=== PATIENT | male | born 1955 | race Caucasian/White ===

== ENCOUNTER 2024-05-01 17:49 | Emergency (ER) | payer MEDICARE, OTHER ==
[~2024-05-01] VITALS: Ht 175.3 cm; Wt 70.9 kg
[2024-05-01] MEDS ORDERED: SODIUM CHLORIDE 0.9% 1,000 ML IV ONE (20:00)
[2024-05-01] MEDS ORDERED: ondansetron HCL 4 MG/2 ML VIAL IV ONE (20:00)
[2024-05-01] MEDS ORDERED: MORPHINE SULFATE 4 MG/ML VIAL IV ONE (20:00)
[2024-05-01 20:09] LABS: BASOPHILS 0.4 % (0-2); EOSINOPHILS 0.2 % (0-6); HEMATOCRIT 42.5 % (35.0-50.0); HEMOGLOBIN 14.8 g/dL (12.0-18.0); LYMPHOCYTES 4.3 % (24-44); MCHC 34.9 g/dl (30-36); MCV 83.2 fl (81-99); MONOCYTES 9.8 % (0-12); NEUTROPHILS 85.3 % (39-80); PLATELET COUNT 301 K/uL (140-440); RBC 5.11 M/ul (4.3-5.7); RDW 15.4 (10.5-15.0)
[2024-05-01] MEDS ORDERED: KETOROLAC TROMETHAMINE 30 MG/ML VIAL IV ONE (20:15)
[2024-05-01 20:25] LABS: ALBUMIN 3.3 g/dL (3.4-5.0); ALBUMIN/GLOBULIN RATIO 0.67 (1.1-2.4); ANION GAP 17.2 (7-21); BILIRUBIN, TOTAL 0.4 ng/dL (0.2-1.0); BUN/CREATININE RATIO 23.61 (6.0-28.6); CALCIUM 12.1 mg/dL (8.5-10.1); CREATININE, SERUM 1.44 mg/dL (0.70-1.30); POTASSIUM 4.2 mmol/L (3.5-5.1); PROTEIN, TOTAL 8.2 g/dL (6.4-8.2)
[2024-05-01 22:11] LABS: BILIRUBIN, URINE NEGATIVE (negative); BLOOD/HGB, URINE NEGATIVE (Negative); KETONE, URINE NEGATIVE (Negative); LEUK ESTERASE, URINE NEGATIVE (negative); NITRITE, URINE NEGATIVE (negative)
[2024-05-01] MEDS ORDERED: PERCOCET 5-3251 EACH PO (23:14)
[2024-05-01] MEDS ORDERED: FLOMAX0.4 MG PO (23:14)
[2024-05-01] MEDS ORDERED: ONDANSETRON ODT8 MG PO (23:14)
[2024-05-01] MEDS ORDERED: ONDANSETRON 4 MG HOME.PACK SL ONE (23:30)
[2024-05-01] MEDS ORDERED: OXYCODONE/ACETAMINOPHEN 1 TAB HOME.PACK PO ONE (23:30)
[2024-05-01 23:47] VITALS: BP 166/92
[2024-05-08] MEDS ORDERED: IBUPROFEN600 MG PO (13:52)
[2024-05-08] MEDS ORDERED: OXYCODON-ACETA1 EAC2 PO (13:52)
[2024-05-08] MEDS ORDERED: ACETAMINOPHEN500 MG PO (13:52)
== END 2024-05-01 23:47 | disposition home or self-care (01) ==
LOC: ED 17:49
PROVIDERS: Family Medicine
DX: C85.98 Non-Hodgkin lymphoma, unspecified, lymph nodes of multiple sites (principal); R19.09 Other intra-abdominal and pelvic swelling, mass and lump
CPT/HCPCS: 36415; 74174; 80053; 81003; 83690; 85025; 96375; 99284-25; A9270; J1885; J2270; J2405; J7030; Q9967